=== PATIENT | male | born 1995 | race Caucasian/White ===

== ENCOUNTER 2017-02-07 16:43 | Emergency (ER) | payer OTHER ==
[~2017-02-07] VITALS: Ht 160 cm; Wt 63.5 kg
[2017-02-07] MEDS ORDERED: Metoclopramide 10mg/2ml Inj IVP ONE (17:15)
[2017-02-07] MEDS ORDERED: Ketorolac 30mg Inj IV ONE (17:15)
[2017-02-07] MEDS ORDERED: DiphenhydrAMINE 50mg/ml Inj IVP ONE (17:15)
[2017-02-07 18:00] VITALS: BP 124/73
[2017-02-07] MEDS ORDERED: IBUPROFEN600 MG ORAL (18:49)
[2017-02-07 19:00] VITALS: BP 124/73
--- NOTE | 2017-02-07 19:07 | Emergency Room Report ---
History of Present Illness General Chief Complaint: Headache Source: Patient Present Illness HPI 21-year-old male with history of migraines presenting with headache. Headache for one day, front of head, throbbing, constant, associated with photophobia and phonophobia. Patient states that he has had headaches like this in the past. Patient has not taken any medication for current headache. Denies any fever chills neck pain nausea vomiting blurry vision. No trauma Allergies: Coded Allergies: No Known Allergies (Unverified , 02/07/17) Patient History Past Medical History: see triage record Past Surgical History: none Pertinent Family History: none Reviewed Nursing Documentation: PMH: Agreed, PSxH: Agreed Nursing Documentation-PMH Past Medical History: No History, Except For Review of Systems All Other Systems: negative except mentioned in HPI Physical Exam Vital Signs Date Time Temp Pulse Resp B/P (MAP) Pulse Ox O2 Delivery O2 Flow Rate FiO2 02/07/17 16:54 97.7 73 18 102/67 98 Room Air Sp02 EP Interpretation: reviewed, normal General Appearance: normal inspection, alert, GCS 15, non-toxic, mild distress , other - , Cooperative Head: normocephalic, atraumatic Eyes: bilateral eye normal inspection, bilateral eye PERRL, bilateral eye EOMI ENT: normal ENT inspection, normal pharynx, normal voice, moist mucus membranes Neck: normal inspection, full range of motion, supple, no meningismus Respiratory: normal inspection, lungs clear, normal breath sounds, no respiratory distress, no retraction, no wheezing, speaking full sentences, chest symmetrical Cardiovascular #1: normal inspection, regular rate, rhythm, no edema, normal capillary refill Cardiovascular #2: 2+ radial (R), 2+ radial (L) Gastrointestinal: normal inspection, non tender, soft, non-distended, no guarding Genitourinary: no CVA tenderness Musculoskeletal: normal inspection, back normal, normal range of motion, non- tender Neurologic: normal inspection, alert, oriented x3, responsive, aerospace assembler III-XII nml as tested, motor strength/tone normal, sensory intact, normal gait, speech normal Psychiatric: normal inspection, judgement/insight normal, memory normal Skin: normal inspection, normal color, no rash, warm/dry, well hydrated, normal turgor Medical Decision Making Diagnostic Impression: Primary Impression: Headache ER Course 21-year-old male with history of migraines presents with headache DDX: Migraine Other serious diagnoses on differential such as intracranial bleed/sah, meningitis/encephalitis, tumor, however patients H&P is more consistent with benign etiology at this time. There are no neurological signs/symptoms/findings on physical exam and patient appears nontoxic. Plan: Pain control with reglan/benadryl/toradol, IVFER course: Patient feels much better with meds. Patient continues to appear nontoxic, aox3, no neurologic symptoms. Disposition: Patient will be discharged to home. Patient instructed to follow up with primary care doctor within 5 days. Patient also instructed to follow up with a neurologist within 1 week. Strict return precautions discussed with patient such as severe/worsening headache, nausea, vomiting, fever chills, neck pain. Patient verbalized understanding. Please note that this Emergency Department Report was dictated using [employer] technology software, occasionally this can lead to erroneous entry secondary to interpretation by the dictation equipment. Last Vital Signs Date Time Temp Pulse Resp B/P (MAP) Pulse Ox O2 Delivery O2 Flow Rate FiO2 02/07/17 18:00 97.7 67 18 124/73 100 Room Air Disposition: HOME, SELF-CARE Condition: Improved Scripts Ibuprofen* (MOTRIN*) 600 Mg Tablet 600 MG ORAL Q8H Y for For Pain, #30 TAB 0 Refills Prov: Liz Ortega M.D. 02/07/17 Referrals: NOT CHOSEN [facility]/,REFERRING (PCP) Patient Instructions: Migraine Headache Additional Instructions: PLEASE FOLLOW UP WITH A NEUROLOGIST WITHIN 1 WEEK Liz Ortega M.D. Feb 07, 2017 19:07
== END 2017-02-07 19:00 | disposition home or self-care (01) ==
LOC: EMR 17:55
DX: R51 Headache (principal)
CPT/HCPCS: 96361; 96374; 96375; 99284; J1200; J1885; J2765